=== PATIENT | female | born 1970 | race African-American/Black ===

== ENCOUNTER 2017-02-20 14:08 | Emergency (ER) | payer MEDICAID, OTHER ==
[2017-02-20] MEDS ORDERED: Ketorolac 60 MG/2 ML SDV IM ONE (14:44)
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
[2017-02-20] MEDS ORDERED: Sodium Chloride 0.9% 1,000 ML IV ONE (15:27)
[2017-02-20] MEDS ORDERED: Ondansetron 4 MG/2 ML SDV IVPUSH ONE (15:27)
[2017-02-20] MEDS ORDERED: Morphine 2 MG/ML Syringe IVPUSH ONE (15:27)
[2017-02-20 16:28] LABS: CHLORIDE,CL 106 mmol/L (98-110); SODIUM,NA 139 mmol/L (136-146)
[2017-02-20 17:44] VITALS: BP 169/87
--- NOTE | 2017-02-22 13:35 | CR ---
EXAM DATE: 02/20/17 PATIENT'S AGE: 46 Patient: NATHALIA UHMMEL Facility: [place], [place] Site . Site : 1970 Study: XRay Chest [id number] 3:21:11 PM Ordering Physician: Doctor Walden Final Report: HISTORY: Chest pain and shortness of breath. Findings: Two views of the chest are provided. There is mild patchy increased density seen in the right lower lung. The upper portion of the right lung and left lung are clear. No evidence for pneumothorax. Cardiac silhouette size appears enlarged. This could be due to cardiomegaly, pericardial effusion or both. Impression: Mild patchy density at the right lung base suspicious for pneumonia. Dictated by James Toro MD @ Feb 20 2017 3:25PM (Electronic Signature) Report Signed by Proxy. RACHEL
--- NOTE | 2017-02-22 13:36 | CR ---
EXAM DATE: 02/20/17 PATIENT'S AGE: 46 Patient: NATHALIA HUMMEL Facility: [place], [place] Site . Site : 1970 Study: XRay Spine Lumbar [id number] 3:21:31 PM Ordering Physician: Doctor Walden Final Report: HISTORY: Back pain. Findings: Three views of the lumbar spine are provided. There is a mild lumbar curve convex to the right. Alignment on the lateral view is unremarkable. There are no findings for fracture or subluxation. The sacroiliac joints are unremarkable. Dictated by James Toro MD @ Feb 20 2017 3:26PM (Electronic Signature) Report Signed by Proxy. RACHEL
== END 2017-02-20 17:41 | disposition home or self-care (01) ==
LOC: MW.ED 14:08
DX: J18.9 Pneumonia, unspecified organism (principal); Z79.4 Long term (current) use of insulin; Z79.84 Long term (current) use of oral hypoglycemic drugs; Z79.899 Other long term (current) drug therapy
CPT/HCPCS: 36415; 71020; 72100; 80053; 85025; 96361; 96374; 96375; 99284; J1885; J2270; J2405; J7040; 99283

== ENCOUNTER 2017-03-16 15:37 | Inpatient (IN) | payer OTHER ==
[2017-03-16] MEDS ORDERED: Sodium Chloride 0.9% 2.5 ML Syringe FLUSH PRN ×2 (16:09→20:16)
[2017-03-16] MEDS ORDERED: Sodium Chloride 0.9% 10 ML Syringe FLUSH PRN ×2 (16:09→20:16)
[2017-03-16] MEDS ORDERED: Albuterol/Ipratropium 3.0-0.5 MG/3 ML Neb Soln NEB ONE (16:10)
[2017-03-16] MEDS ORDERED: Dexamethasone 10 MG/ML SDV IVPUSH ONE (16:11)
--- NOTE | 2017-03-16 16:13 | EDM.PDOC ---
ED HPI GENERAL MEDICAL PROBLEM - General Chief Complaint: Respiratory Problem Stated Complaint: SHORTNESS OF BREATH/COUGHING Time Seen by Provider: 03/16/17 16:10 Source of Information: Reports: Patient History Limitations: Reports: No Limitations - History of Present Illness INITIAL COMMENTS - FREE TEXT/NARRATIVE: HISTORY AND PHYSICAL: 46-year-old black female presenting with shortness of breath and increased respiratory rate History of Present Illness: []Patient has been sick for the last month and gradually has worsened Known history diabetes mellitus type 1 she has history of pneumonia Review of Systems: As per history of present illness and below otherwise all systems reviewed and negative. Past medical history: As per history of present illness and as reviewed below otherwise noncontributory. Surgical history: As per history of present illness and as reviewed below otherwise noncontributory. Social history: No reported history of drug or alcohol abuse. Family history: As per history of present illness and as reviewed below otherwise noncontributory. Physical exam: HEENT: Atraumatic, normocehpalic, pupils reactive, negative for conjunctival pallor or scleral icterus, mucous membranes moist, throat clear, neck supple, nontender, trachea midline. Lungs: Clear to auscultation, breath sounds equal bilaterally, chest non tender. Heart: S1S2, regular, negative for clicks, rubs, or JVD. Abdomen: Soft, nondistended, nontender. Negative for masses or hepatossplenmegaly. Negative for costovertebral tenderness. Pelvis: Stable nontender. Genitourinary: Deferred. Rectal: Deferred Extremities: Atraumatic, negative for cords or calf pain. Neurovascular unremarkable. Neuro: Awake, alert, oriented. Cranial nerves II through XII unremarkable. Cerebellum unremarkable. Motor and sensory unremarkable throughout. Exam nonfocal. Diagnostics: [] Therapeutics: [] Impression: [] Plan: [] Definitive disposition and diagnosis as appropriate pending reevaluation and review of above. - Related Data Allergies Allergy/AdvReac Type Severity Reaction Status Date / Time No Known Allergies Allergy Verified 02/20/17 14:11 Home Meds: Home Meds Insulin Aspart [NovoLOG] 6 units SQ TID 05/23/15 [History] metFORMIN [Glucophage] 1,000 mg PO BIDMEALS 05/23/15 [History] Losartan/Hydrochlorothiazide [Losartan-HCTZ 100-25 MG] 1 each PO DAILY #30 tablet 02/03/16 [Rx] Cefdinir 300 mg PO BID #60 capsule 07/02/15 [Rx] Insulin Detemir [Levemir Flextouch] 27 units SQ BEDTIME #0 07/02/15 [Rx] amLODIPine [Norvasc] 5 mg PO DAILY #30 tablet 07/02/15 [Rx] Levofloxacin [Levaquin] 750 mg PO DAILY #10 tablet 02/20/17 [Rx] Past Medical History - Past Health History Medical/Surgical History: Denies Medical/Surgical History HEENT History: Reports: Impaired Vision Cardiovascular History: Reports: High Cholesterol Respiratory History: Reports: None Gastrointestinal History: Reports: None Genitourinary History: Reports: Other (See Below) Other Genitourinary History: UTI 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 Musculoskeletal History: Reports: None Neurological History: Reports: None Psychiatric History: Reports: None Endocrine/Metabolic History: Reports: Diabetes, Type I Hematologic History: Reports: None Immunologic History: Reports: None Oncologic (Cancer) History: Reports: None Dermatologic History: Reports: None - Past Surgical History Head Surgeries/Procedures: Reports: None Cardiovascular Surgical History: Reports: None GI Surgical History: Reports: Appendectomy Female Surgical History: Reports: None Endocrine Surgical History: Reports: None Musculoskeletal Surgical History: Reports: None Social & Family History - Family History Family Medical History: Noncontributory - Tobacco Use Smoking Status *Q: Never Smoker Second Hand Smoke Exposure: No - Caffeine Use Caffeine Use: Reports: Tea - Recreational Drug Use Recreational Drug Use: No Course - Vital Signs Last Recorded V/S: Last Vital Signs Temp 37.9 C 03/16/17 15:47 Pulse 120 H 03/16/17 15:47 Resp 18 03/16/17 15:47 BP 218/116 H 03/16/17 15:47 Pulse Ox 84 L 03/16/17 15:47 - Orders/Labs/Meds Orders: Active Orders 24 hr Category Date Time Status EKG Documentation Completion [RC] STAT Care 03/16/17 16:09 Ordered RT Aerosol Therapy [RC] ASDIRECTED Care 03/16/17 16:10 Ordered Chest 2V [CR] Stat Exams 03/16/17 16:10 Ordered CBC WITH AUTO DIFF [HEME] Stat Lab 03/16/17 16:09 Ordered COMPREHENSIVE METABOLIC PN,CMP [CHEM] Stat Lab 03/16/17 16:09 Ordered HCG QUALITATIVE,URINE [URCHEM] Stat Lab 03/16/17 16:09 Uncollected TROPONIN I [CHEM] Stat Lab 03/16/17 16:09 Ordered UA W/MICROSCOPIC [URIN] Stat Lab 03/16/17 16:10 Uncollected Albuterol/Ipratropium [DuoNeb 3.0-0.5 MG/3 ML] Med 03/16/17 16:10 Once 3 ml NEB ONETIME ONE Sodium Chloride 0.9% [Saline Flush] Med 03/16/17 16:09 Ordered 10 ml FLUSH ASDIRECTED PRN Sodium Chloride 0.9% [Saline Flush] Med 03/16/17 16:09 Ordered 2.5 ml FLUSH ASDIRECTED PRN Saline Lock Insert [OM.PC] Stat Oth 03/16/17 16:09 Ordered Medication Orders Sodium Chloride (Saline Flush) 10 ml FLUSH ASDIRECTED PRN PRN Reason: Keep Vein Open Sodium Chloride (Saline Flush) 2.5 ml FLUSH ASDIRECTED PRN PRN Reason: Keep Vein Open Meds: Medications Generic Name Dose Route Start Last Admin Trade Name Freq PRN Reason Stop Dose Admin Sodium Chloride 10 ml 03/16/17 16:09 Saline Flush FLUSH ASDIRECTED PRN Keep Vein Open Sodium Chloride 2.5 ml 03/16/17 16:09 Saline Flush FLUSH ASDIRECTED PRN Keep Vein Open Departure - Discharge Information Referrals: PCP,None [Primary Care Provider] - - My Orders Last 24 Hours: My Active Orders 03/16/17 16:09 EKG Documentation Completion [RC] STAT CBC WITH AUTO DIFF [HEME] Stat COMPREHENSIVE METABOLIC PN,CMP [CHEM] Stat HCG QUALITATIVE,URINE [URCHEM] Stat TROPONIN I [CHEM] Stat Sodium Chloride 0.9% [Saline Flush] 10 ml FLUSH ASDIRECTED PRN Sodium Chloride 0.9% [Saline Flush] 2.5 ml FLUSH ASDIRECTED PRN Saline Lock Insert [OM.PC] Stat 03/16/17 16:10 RT Aerosol Therapy [RC] ASDIRECTED Chest 2V [CR] Stat UA W/MICROSCOPIC [URIN] Stat Albuterol/Ipratropium [DuoNeb 3.0-0.5 MG/3 ML] 3 ml NEB ONETIME ONE - Assessment/Plan Last 24 Hours: My Active Orders 03/16/17 16:09 EKG Documentation Completion [RC] STAT CBC WITH AUTO DIFF [HEME] Stat COMPREHENSIVE METABOLIC PN,CMP [CHEM] Stat HCG QUALITATIVE,URINE [URCHEM] Stat TROPONIN I [CHEM] Stat Sodium Chloride 0.9% [Saline Flush] 10 ml FLUSH ASDIRECTED PRN Sodium Chloride 0.9% [Saline Flush] 2.5 ml FLUSH ASDIRECTED PRN Saline Lock Insert [OM.PC] Stat 03/16/17 16:10 RT Aerosol Therapy [RC] ASDIRECTED Chest 2V [CR] Stat UA W/MICROSCOPIC [URIN] Stat Albuterol/Ipratropium [DuoNeb 3.0-0.5 MG/3 ML] 3 ml NEB ONETIME ONE
[2017-03-16 17:00] LABS: CHLORIDE,CL 99 mmol/L (98-110); SODIUM,NA 136 mmol/L (136-146)
[2017-03-16] MEDS ORDERED: Insulin Regular, Human 100 Units/ML 10 ML Vial IVPUSH ONE (17:08)
[2017-03-16] MEDS ORDERED: Acetaminophen 325 MG Tab PO ONE (18:53)
[2017-03-16] MEDS ORDERED: Levofloxacin/Dextrose 5%-Water 750 MG in Premix Bag 1 BAG IV ONE (19:00)
[2017-03-16] MEDS ORDERED: Sodium Chloride 0.9% 1,000 ML IV ONE (19:00)
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
[2017-03-16 21:21] LABS: CHLORIDE,CL 102 mmol/L (98-110); SODIUM,NA 136 mmol/L (136-146)
[2017-03-16] MEDS: Insulin Aspart 100 Units/ML 3 ML Pen SUBCUT SCH (23:10)
[2017-03-17] MEDS ORDERED: Lisinopril 10 MG Tab PO SCH (09:00)
[2017-03-17] MEDS: Insulin Aspart 100 Units/ML 3 ML Pen SUBCUT SCH ×5 (09:09→22:44)
[2017-03-17] MEDS: Enoxaparin 40 MG/0.4 ML Syringe SUBCUT SCH (09:17)
[2017-03-17] MEDS: Hydrochlorothiazide/Losartan 12.5-50 mg Tab PO SCH (09:17)
[2017-03-17] MEDS: amLODIPine 5 MG Tab PO SCH (09:18)
--- NOTE | 2017-03-17 10:10 | CR ---
EXAM DATE: 03/16/17 PATIENT'S AGE: 46 Patient: NATHALIA HUMMEL Facility: [place], [place] Site . Site : 1970 Study: XRay Chest [id number]/21/2017 5:36:44 PM Ordering Physician: Doctor Walden Final Report: INDICATION: Shortness of breath TECHNIQUE: Chest radiograph 2 views COMPARISON: 02/20/2017 FINDINGS: Mediastinum: The mediastinum is normal in appearance. Mild stable cardiomegaly is noted. Lungs: [id number] airspace opacities are present in the mid and lower lung zones bilaterally with minimal Lai A and Lia B-lines seen. No sign of pleural effusion seen. No pneumothorax is identified. Bones: Unremarkable for age. IMPRESSIONS: 1. Klhj-[id number] airspace opacities are present in the mid and lower lung zones bilaterally with minimal Lia A and Lia B-lines seen. Findings are suspicious for interstitial edema. Superimposed pneumonia cannot be excluded. 2. Mild stable cardiomegaly is noted. Dictated by Jaime Nolasco MD @ 03/16/2017 6:20:20 PM Dictated by: Jaime Nolasco MD @ 03/16/2017 18:20:37 (Electronic Signature) Report Signed by Proxy. RACHEL
--- NOTE | 2017-03-17 13:19 | EDM.PDOC ---
ED HPI GENERAL MEDICAL PROBLEM - General Chief Complaint: Respiratory Problem Stated Complaint: SHORTNESS OF BREATH/COUGHING Time Seen by Provider: 03/16/17 16:10 Source of Information: Reports: Patient, Family History Limitations: Reports: Other (sleeping , difficult to arouse ) - History of Present Illness INITIAL COMMENTS - FREE TEXT/NARRATIVE: HISTORY AND PHYSICAL: []Patient presents with shortness of breath to 46-year-old black female has any increased respiratory rate History of Present Illness: [Patient states that she has been sick for the last month and gradually has worsened Patient has no known history of diabetes mellitus type 1 Patient has known history of pneumonia she has been hospitalized for this in the past Patient does not recall her medications because there are "too many"] Review of Systems: As per history of present illness and below otherwise all systems reviewed and negative. Past medical history: As per history of present illness and as reviewed below otherwise noncontributory. Surgical history: As per history of present illness and as reviewed below otherwise noncontributory. Social history: No reported history of drug or alcohol abuse. Family history: As per history of present illness and as reviewed below otherwise noncontributory. Physical exam: Somewhat lethargic female with rapid respirations. Secondary language is [place]. She is from descent. Skin is warm and dry HEENT: Atraumatic, normocehpalic, pupils reactive, negative for conjunctival pallor or scleral icterus, mucous membranes moist, throat clear, neck supple, nontender, trachea midline. Lungs: Diminished on auscultation, breath sounds equal bilaterally, chest non tender. Heart: S1S2, regular, negative for clicks, rubs, or JVD. Abdomen: Soft, nondistended, nontender. Negative for masses or hepatossplenmegaly. Negative for costovertebral tenderness. Pelvis: Stable nontender. Genitourinary: Deferred. Rectal: Deferred Extremities: Atraumatic, negative for cords or calf pain. Neurovascular unremarkable. Neuro: Awake, alert, oriented. Cranial nerves II through XII unremarkable. Cerebellum unremarkable. Motor and sensory unremarkable throughout. Exam nonfocal. Have discussed this case with patient and with the friends that is now present in the room. Have discussed her pneumonia and my concerns Have discussed this case with Dr. Blount who has kindly accepted this patient for admission Diagnostics: [CBC CMP amylase lipase ABGs troponin EKG chest x-ray hCG UA ] Therapeutics: [Duo nebs IV fluid Levaquin IV] Impression: [Right middle lobe pneumonia Pulmonary edema] Plan: []Admit patient to medical surgical floor Definitive disposition and diagnosis as appropriate pending reevaluation and review of above. Onset: Gradual Location: Reports: Chest - Related Data Allergies Allergy/AdvReac Type Severity Reaction Status Date / Time No Known Allergies Allergy Verified 02/20/17 14:11 Home Meds: Home Meds Insulin Aspart [NovoLOG] 6 units SQ TID 05/23/15 [History] metFORMIN [Glucophage] 1,000 mg PO BIDMEALS 05/23/15 [History] Losartan/Hydrochlorothiazide [Losartan-HCTZ 100-25 MG] 1 each PO DAILY #30 tablet 05/29/15 [Rx] Cefdinir 300 mg PO BID #60 capsule 07/02/15 [Rx] Insulin Detemir [Levemir Flextouch] 27 units SQ BEDTIME #0 07/02/15 [Rx] amLODIPine [Norvasc] 5 mg PO DAILY #30 tablet 07/02/15 [Rx] Levofloxacin [Levaquin] 750 mg PO DAILY #10 tablet 02/20/17 [Rx] Furosemide 40 mg PO DAILY 03/16/17 [History] Past Medical History - Past Health History Medical/Surgical History: Denies Medical/Surgical History HEENT History: Reports: Impaired Vision Cardiovascular History: Reports: High Cholesterol Respiratory History: Reports: None Gastrointestinal History: Reports: None Genitourinary History: Reports: Other (See Below) Other Genitourinary History: UTI GORE CUTTER History: Reports: None Musculoskeletal History: Reports: None Neurological History: Reports: None Psychiatric History: Reports: None Endocrine/Metabolic History: Reports: Diabetes, Type I Hematologic History: Reports: None Immunologic History: Reports: None Oncologic (Cancer) History: Reports: None Dermatologic History: Reports: None - Infectious Disease History Infectious Disease History: Reports: None - Past Surgical History Head Surgeries/Procedures: Reports: None Cardiovascular Surgical History: Reports: None GI Surgical History: Reports: Appendectomy Female Surgical History: Reports: None Endocrine Surgical History: Reports: None Musculoskeletal Surgical History: Reports: None Social & Family History - Family History Family Medical History: Noncontributory - Tobacco Use Smoking Status *Q: Never Smoker Second Hand Smoke Exposure: No - Caffeine Use Caffeine Use: Reports: Tea - Recreational Drug Use Recreational Drug Use: No ED ROS GENERAL - Review of Systems Review Of Systems: ROS reveals no pertinent complaints other than HPI. ED EXAM, GENERAL - Physical Exam Exam: See Below (See dictation) Course - Vital Signs Last Recorded V/S: Last Vital Signs Temp 36.3 C 03/17/17 08:00 Pulse 95 03/17/17 08:00 Resp 16 03/17/17 08:00 BP 147/82 H 03/17/17 09:18 Pulse Ox 98 03/17/17 08:00 - Orders/Labs/Meds Orders: Active Orders 24 hr Category Date Time Status EKG Documentation Completion [RC] STAT Care 03/16/17 16:09 Active RT Aerosol Therapy [RC] ASDIRECTED Care 03/16/17 16:10 Active CULTURE BLOOD [BC] Stat Lab 03/16/17 18:27 Received CULTURE BLOOD [BC] Stat Lab 03/16/17 18:34 Received Sodium Chloride 0.9% [Saline Flush] Med 03/16/17 16:09 Active 10 ml FLUSH ASDIRECTED PRN Sodium Chloride 0.9% [Saline Flush] Med 03/16/17 16:09 Active 2.5 ml FLUSH ASDIRECTED PRN Blood Culture x2 Reflex Set [OM.PC] Stat Oth 03/16/17 18:04 Ordered Saline Lock Insert [OM.PC] Stat Oth 03/16/17 16:09 Ordered Medication Orders Amlodipine Besylate (Norvasc) 5 mg PO DAILY [facility] Last Admin: 03/17/17 09:18 Dose: 5 mg Enoxaparin Sodium (Lovenox) 40 mg SUBCUT DAILY [facility] Last Admin: 03/17/17 09:17 Dose: 40 mg HCTZ/Losartan Potassium (Hyzaar 50-12.5 Mg) 2 tab PO DAILY [facility] Last Admin: 03/17/17 09:17 Dose: 2 tab Levofloxacin/Dextrose 750 mg/ (Premix) 150 mls @ 100 mls/hr IV ONETIME ONE Stop: 03/17/17 21:29 Insulin Aspart (Novolog) 0 unit SUBCUT QIDACANDBED MAY PRN Reason: Protocol Last Admin: 03/17/17 09:09 Dose: 6 unit Admin: 03/16/17 23:10 Dose: 6 unit Insulin Aspart (Novolog) 6 unit SUBCUT TID MAY Insulin Detemir (Levemir) 27 unit SUBCUT BEDTIME [facility] Metformin HCl (Glucophage) 1,000 mg PO BIDMEALS MAY Sodium Chloride (Saline Flush) 10 ml FLUSH ASDIRECTED PRN PRN Reason: Keep Vein Open Sodium Chloride (Saline Flush) 2.5 ml FLUSH ASDIRECTED PRN PRN Reason: Keep Vein Open Sodium Chloride (Saline Flush) 10 ml FLUSH ASDIRECTED PRN PRN Reason: Keep Vein Open Sodium Chloride (Saline Flush) 2.5 ml FLUSH ASDIRECTED PRN PRN Reason: Keep Vein Open Labs: Laboratory Tests 03/16/17 03/16/17 03/16/17 Range/Units 16:15 16:15 18:42 WBC 5.90 (4.0-11.0) K/uL RBC 4.00 L (4.30-5.90) M/uL Hgb 11.5 L (12.0-16.0) g/dL Hct 35.5 L (36.0-46.0) % MCV 88.8 (80.0-98.0) fL MCH 28.8 (27.0-32.0) pg MCHC 32.4 (31.0-37.0) g/dL RDW Std Deviation 43.1 (28.0-62.0) fl RDW Coeff of Matt 13 (11.0-15.0) % Plt Count 238 (150-400) K/uL MPV 10.30 (7.40-12.00) fL Neut % (Auto) 82.1 H (48.0-80.0) % Lymph % (Auto) 8.1 L (16.0-40.0) % [place] % (Auto) 9.3 (0.0-15.0) % Eos % (Auto) 0.3 (0.0-7.0) % Baso % (Auto) 0.2 (0.0-1.5) % Neut # (Auto) 4.8 (1.4-5.7) K/uL Lymph # (Auto) 0.5 L (0.6-2.4) K/uL [place] # (Auto) 0.6 (0.0-0.8) K/uL Eos # (Auto) 0.0 (0.0-0.7) K/uL Baso # (Auto) 0.0 (0.0-0.1) K/uL Nucleated RBC % 0.0 /100WBC Nucleated RBCs # 0 K/uL Sodium 136 (136-146) mmol/L Potassium 4.1 (3.5-5.1) mmol/L Chloride 99 (98-110) mmol/L Carbon Dioxide 24 (21-31) mmol/L BUN 16 (6.0-23.0) mg/dL Creatinine 0.9 (0.6-1.5) mg/dL Est Cr Clr Drug Dosing 71.03 mL/min Estimated GFR (MDRD) > 60.0 ml/min Glucose 356 H (60-110) mg/dL POC Glucose 206 H (60-110) mg/dL Calcium 9.1 (8.8-10.8) mg/dL Total Bilirubin 0.2 (0.1-1.5) mg/dL AST 33 (5-40) IU/L ALT 29 (8-54) IU/L Alkaline Phosphatase 108 (40-150) Troponin I < 0.10 (0.0-0.29) NG/ML Total Protein 6.7 (6.0-8.0) g/dL Albumin 3.3 L (3.5-5.0) g/dL Globulin 3.4 (2.0-3.5) g/dL Albumin/Globulin Ratio 1.0 L (1.3-2.8) Meds: Medications Generic Name Dose Route Start Last Admin Trade Name Freq PRN Reason Stop Dose Admin Amlodipine Besylate 5 mg 03/17/17 09:00 03/17/17 09:18 Norvasc PO 5 mg DAILY [facility] Administration Enoxaparin Sodium 40 mg 03/17/17 09:00 03/17/17 09:17 Lovenox SUBCUT 40 mg DAILY MAY Administration HCTZ/Losartan Potassium 2 tab 03/17/17 09:00 03/17/17 09:17 Hyzaar 50-12.5 Mg PO 2 tab DAILY MAY Administration Levofloxacin/Dextrose 750 mg/ 150 mls @ 100 mls/hr 03/17/17 20:00 Premix IV 03/17/17 21:29 ONETIME ONE Insulin Aspart 0 unit 03/16/17 21:00 03/17/17 09:09 Novolog SUBCUT 6 unit QIDACANDBED [facility] Administration Protocol Insulin Aspart 6 unit 03/17/17 14:00 Novolog SUBCUT TID [facility] Insulin Detemir 27 unit 03/17/17 21:00 Levemir SUBCUT BEDTIME [facility] Metformin HCl 1,000 mg 03/17/17 17:00 Glucophage PO BIDMEALS [facility] Sodium Chloride 10 ml 03/16/17 16:09 Saline Flush FLUSH ASDIRECTED PRN Keep Vein Open Sodium Chloride 2.5 ml 03/16/17 16:09 Saline Flush FLUSH ASDIRECTED PRN Keep Vein Open Sodium Chloride 10 ml 03/16/17 20:16 Saline Flush FLUSH ASDIRECTED PRN Keep Vein Open Sodium Chloride 2.5 ml 03/16/17 20:16 Saline Flush FLUSH ASDIRECTED PRN Keep Vein Open Discontinued Medications Generic Name Dose Route Start Last Admin Trade Name Freq PRN Reason Stop Dose Admin Acetaminophen 650 mg 03/16/17 18:53 03/16/17 19:16 Tylenol PO 03/16/17 18:54 650 mg NOW ONE Administration Albuterol/Ipratropium 3 ml 03/16/17 16:10 03/16/17 16:31 Duoneb 3.0-0.5 Mg/3 Ml NEB 03/16/17 16:11 3 ml ONETIME ONE Administration Dexamethasone 10 mg 03/16/17 16:11 03/16/17 16:31 Dexamethasone IVPUSH 03/16/17 16:12 10 mg ONETIME ONE Administration Levofloxacin/Dextrose 750 mg/ 150 mls @ 100 mls/hr 03/16/17 19:00 03/16/17 19 :17 Premix IV 03/16/17 20:29 100 mls/hr ONETIME ONE Administration Sodium Chloride 1,000 mls @ 999 mls/hr 03/16/17 19:00 03/16/17 19:16 Normal Saline IV 03/16/17 20:00 999 mls/hr STAT ONE Administration Insulin Human Regular 10 unit 03/16/17 17:08 03/16/17 17:59 Novolin R IVPUSH 03/16/17 17:09 10 units ONETIME ONE Administration Protocol Lisinopril 10 mg 03/17/17 09:00 Prinivil PO DAILY [facility] Departure - Departure Time of Disposition: 20:30 Disposition: Admitted As Inpatient 67 Condition: Good Clinical Impression: Pneumonia Qualifiers: Pneumonia type: due to unspecified organism Laterality: right Lung location: middle lobe of lung Qualified Code(s): J18.1 - Lobar pneumonia, unspecified organism - Discharge Information - My Orders Last 24 Hours: My Active Orders 03/16/17 16:09 EKG Documentation Completion [RC] STAT Sodium Chloride 0.9% [Saline Flush] 10 ml FLUSH ASDIRECTED PRN Sodium Chloride 0.9% [Saline Flush] 2.5 ml FLUSH ASDIRECTED PRN Saline Lock Insert [OM.PC] Stat 03/16/17 16:10 RT Aerosol Therapy [RC] ASDIRECTED 03/16/17 18:04 Blood Culture x2 Reflex Set [OM.PC] Stat 03/16/17 18:27 CULTURE BLOOD [BC] Stat 03/16/17 18:34 CULTURE BLOOD [BC] Stat - Assessment/Plan Last 24 Hours: My Active Orders 03/16/17 16:09 EKG Documentation Completion [RC] STAT Sodium Chloride 0.9% [Saline Flush] 10 ml FLUSH ASDIRECTED PRN Sodium Chloride 0.9% [Saline Flush] 2.5 ml FLUSH ASDIRECTED PRN Saline Lock Insert [OM.PC] Stat 03/16/17 16:10 RT Aerosol Therapy [RC] ASDIRECTED 03/16/17 18:04 Blood Culture x2 Reflex Set [OM.PC] Stat 03/16/17 18:27 CULTURE BLOOD [BC] Stat 03/16/17 18:34 CULTURE BLOOD [BC] Stat
[2017-03-17] MEDS ORDERED: Insulin Aspart 100 Units/ML 3 ML Pen SUBCUT SCH ×2 (14:00→16:10)
[2017-03-17] MEDS: Furosemide 40 MG Tab PO SCH (15:30)
[2017-03-17] MEDS: metFORMIN 500 MG Tab PO SCH (17:41)
[2017-03-17] MEDS ORDERED: Levofloxacin/Dextrose 5%-Water 750 MG in Premix Bag 1 BAG IV ONE (20:00)
[2017-03-17] MEDS ORDERED: Insulin Detemir 100 Units/ML 3 ML Pen SUBCUT SCH (21:00)
[2017-03-18] MEDS: Acetaminophen 325 MG Tab PO PRN (02:54)
[2017-03-18 06:04] LABS: CHLORIDE,CL 99 mmol/L (98-110); SODIUM,NA 132 mmol/L (136-146)
[2017-03-18] MEDS: metFORMIN 500 MG Tab PO SCH (08:25)
[2017-03-18] MEDS: Insulin Aspart 100 Units/ML 3 ML Pen SUBCUT SCH ×7 (08:25→21:31)
[2017-03-18] MEDS: Enoxaparin 40 MG/0.4 ML Syringe SUBCUT SCH (08:26)
[2017-03-18] MEDS: Hydrochlorothiazide/Losartan 12.5-50 mg Tab PO SCH (08:26)
[2017-03-18] MEDS: amLODIPine 5 MG Tab PO SCH (08:27)
[2017-03-18] MEDS: Furosemide 40 MG Tab PO SCH (08:27)
[2017-03-18] MEDS ORDERED: Insulin Detemir 100 Units/ML 3 ML Pen SUBCUT SCH ×2 (09:21→21:15)
[2017-03-18] MEDS: Lisinopril 10 MG Tab PO SCH (10:17)
[2017-03-18] MEDS: guaiFENesin 100 MG/5 ML Soln 10 ML UD Cup PO PRN ×2 (14:21→21:14)
--- NOTE | 2017-03-18 18:25 | PCM.PN ---
- General Info Date of Service: 03/18/17 Admission Dx/Problem (Free Text): Pneumonia , chf Subjective Update: Feeling better today , decreased appetite , Bs uncontrolled - Review of Systems General: Reports: Weakness HEENT: Reports: No Symptoms Pulmonary: Reports: Shortness of Breath, Cough, Sputum Cardiovascular: Reports: Dyspnea on Exertion Gastrointestinal: Reports: No Symptoms Genitourinary: Reports: No Symptoms Musculoskeletal: Reports: No Symptoms Skin: Reports: Dryness Neurological: Reports: No Symptoms - Patient Data Vitals - Most Recent: Last Vital Signs Temp 99.5 F 03/18/17 12:00 Pulse 96 03/18/17 12:00 Resp 18 03/18/17 12:00 BP 138/78 03/18/17 12:00 Pulse Ox 92 L 03/18/17 12:00 Weight - Most Recent: 160 lb I&O - Last 24 Hours: Intake & Output 03/18/17 03/18/17 03/18/17 06:59 14:59 22:59 Intake Total 740 625 Output Total 1300 1000 Balance -560 -375 Lab Results Last 24 Hours: Laboratory Results - last 24 hr 03/17/17 03/17/17 03/18/17 Range/Units 16:58 22:19 05:10 WBC (4.0-11.0) K/uL RBC (4.30-5.90) M/uL Hgb (12.0-16.0) g/dL Hct (36.0-46.0) % MCV (80.0-98.0) fL MCH (27.0-32.0) pg MCHC (31.0-37.0) g/dL RDW Std Deviation (28.0-62.0) fl RDW Coeff of Matt (11.0-15.0) % Plt Count (150-400) K/uL MPV (7.40-12.00) fL Neut % (Auto) (48.0-80.0) % Lymph % (Auto) (16.0-40.0) % [place] % (Auto) (0.0-15.0) % Eos % (Auto) (0.0-7.0) % Baso % (Auto) (0.0-1.5) % Neut # (Auto) (1.4-5.7) K/uL Lymph # (Auto) (0.6-2.4) K/uL [place] # (Auto) (0.0-0.8) K/uL Eos # (Auto) (0.0-0.7) K/uL Baso # (Auto) (0.0-0.1) K/uL Nucleated RBC % /100WBC Nucleated RBCs # K/uL Sodium (136-146) mmol/L Potassium (3.5-5.1) mmol/L Chloride (98-110) mmol/L Carbon Dioxide (21-31) mmol/L BUN (6.0-23.0) mg/dL Creatinine (0.6-1.5) mg/dL Est Cr Clr Drug Dosing mL/min Estimated GFR (MDRD) ml/min Glucose (60-110) mg/dL POC Glucose 185 H 231 H (60-110) mg/dL Calcium (8.8-10.8) mg/dL Triglycerides 160 (10-190) mg/dL Cholesterol 242 H (131-240) mg/dL LDL Cholesterol, Calc 164 (60-180) mg/dL VLDL Cholesterol 32 (5-55) mg/dL HDL Cholesterol 46 (40-80) mg/dL Cholesterol/HDL Ratio 5.3 (3.3-6.0) 03/18/17 03/18/17 03/18/17 Range/Units 05:10 05:10 06:09 WBC 3.22 L (4.0-11.0) K/uL RBC 3.72 L (4.30-5.90) M/uL Hgb 10.6 L (12.0-16.0) g/dL Hct 33.3 L (36.0-46.0) % MCV 89.5 (80.0-98.0) fL MCH 28.5 (27.0-32.0) pg MCHC 31.8 (31.0-37.0) g/dL RDW Std Deviation 44.1 (28.0-62.0) fl RDW Coeff of Matt 13 (11.0-15.0) % Plt Count 232 (150-400) K/uL MPV 10.10 (7.40-12.00) fL Neut % (Auto) 60.2 (48.0-80.0) % Lymph % (Auto) 28.3 (16.0-40.0) % [place] % (Auto) 11.2 (0.0-15.0) % Eos % (Auto) 0.0 (0.0-7.0) % Baso % (Auto) 0.3 (0.0-1.5) % Neut # (Auto) 1.9 (1.4-5.7) K/uL Lymph # (Auto) 0.9 (0.6-2.4) K/uL [place] # (Auto) 0.4 (0.0-0.8) K/uL Eos # (Auto) 0.0 (0.0-0.7) K/uL Baso # (Auto) 0.0 (0.0-0.1) K/uL Nucleated RBC % 0.0 /100WBC Nucleated RBCs # 0 K/uL Sodium 132 L (136-146) mmol/L Potassium 4.1 (3.5-5.1) mmol/L Chloride 99 (98-110) mmol/L Carbon Dioxide 24 (21-31) mmol/L BUN 17 (6.0-23.0) mg/dL Creatinine 1.0 (0.6-1.5) mg/dL Est Cr Clr Drug Dosing 63.82 mL/min Estimated GFR (MDRD) > 60.0 ml/min Glucose 280 H (60-110) mg/dL POC Glucose 217 H (60-110) mg/dL Calcium 8.3 L (8.8-10.8) mg/dL Triglycerides (10-190) mg/dL Cholesterol (131-240) mg/dL LDL Cholesterol, Calc (60-180) mg/dL VLDL Cholesterol (5-55) mg/dL HDL Cholesterol (40-80) mg/dL Cholesterol/HDL Ratio (3.3-6.0) 03/18/17 03/18/17 03/18/17 Range/Units 11:18 14:15 14:34 WBC (4.0-11.0) K/uL RBC (4.30-5.90) M/uL Hgb (12.0-16.0) g/dL Hct (36.0-46.0) % MCV (80.0-98.0) fL MCH (27.0-32.0) pg MCHC (31.0-37.0) g/dL RDW Std Deviation (28.0-62.0) fl RDW Coeff of Matt (11.0-15.0) % Plt Count (150-400) K/uL MPV (7.40-12.00) fL Neut % (Auto) (48.0-80.0) % Lymph % (Auto) (16.0-40.0) % [place] % (Auto) (0.0-15.0) % Eos % (Auto) (0.0-7.0) % Baso % (Auto) (0.0-1.5) % Neut # (Auto) (1.4-5.7) K/uL Lymph # (Auto) (0.6-2.4) K/uL [place] # (Auto) (0.0-0.8) K/uL Eos # (Auto) (0.0-0.7) K/uL Baso # (Auto) (0.0-0.1) K/uL Nucleated RBC % /100WBC Nucleated RBCs # K/uL Sodium (136-146) mmol/L Potassium (3.5-5.1) mmol/L Chloride (98-110) mmol/L Carbon Dioxide (21-31) mmol/L BUN (6.0-23.0) mg/dL Creatinine (0.6-1.5) mg/dL Est Cr Clr Drug Dosing mL/min Estimated GFR (MDRD) ml/min Glucose (60-110) mg/dL POC Glucose 195 H 33 L 87 (60-110) mg/dL Calcium (8.8-10.8) mg/dL Triglycerides (10-190) mg/dL Cholesterol (131-240) mg/dL LDL Cholesterol, Calc (60-180) mg/dL VLDL Cholesterol (5-55) mg/dL HDL Cholesterol (40-80) mg/dL Cholesterol/HDL Ratio (3.3-6.0) 03/18/17 Range/Units 17:05 WBC (4.0-11.0) K/uL RBC (4.30-5.90) M/uL Hgb (12.0-16.0) g/dL Hct (36.0-46.0) % MCV (80.0-98.0) fL MCH (27.0-32.0) pg MCHC (31.0-37.0) g/dL RDW Std Deviation (28.0-62.0) fl RDW Coeff of Matt (11.0-15.0) % Plt Count (150-400) K/uL MPV (7.40-12.00) fL Neut % (Auto) (48.0-80.0) % Lymph % (Auto) (16.0-40.0) % [place] % (Auto) (0.0-15.0) % Eos % (Auto) (0.0-7.0) % Baso % (Auto) (0.0-1.5) % Neut # (Auto) (1.4-5.7) K/uL Lymph # (Auto) (0.6-2.4) K/uL [place] # (Auto) (0.0-0.8) K/uL Eos # (Auto) (0.0-0.7) K/uL Baso # (Auto) (0.0-0.1) K/uL Nucleated RBC % /100WBC Nucleated RBCs # K/uL Sodium (136-146) mmol/L Potassium (3.5-5.1) mmol/L Chloride (98-110) mmol/L Carbon Dioxide (21-31) mmol/L BUN (6.0-23.0) mg/dL Creatinine (0.6-1.5) mg/dL Est Cr Clr Drug Dosing mL/min Estimated GFR (MDRD) ml/min Glucose (60-110) mg/dL POC Glucose 286 H (60-110) mg/dL Calcium (8.8-10.8) mg/dL Triglycerides (10-190) mg/dL Cholesterol (131-240) mg/dL LDL Cholesterol, Calc (60-180) mg/dL VLDL Cholesterol (5-55) mg/dL HDL Cholesterol (40-80) mg/dL Cholesterol/HDL Ratio (3.3-6.0) Med Orders - Current: Current Medications Acetaminophen (Tylenol) 650 mg PO Q6H PRN PRN Reason: Headache/Pain Last Admin: 03/18/17 02:54 Dose: 650 mg Amlodipine Besylate (Norvasc) 5 mg PO DAILY [facility] Last Admin: 03/18/17 08:27 Dose: 5 mg Atorvastatin Calcium (Lipitor) 40 mg PO BEDTIME [facility] Enoxaparin Sodium (Lovenox) 40 mg SUBCUT DAILY [facility] Last Admin: 03/18/17 08:26 Dose: 40 mg Furosemide (Lasix) 40 mg PO DAILY [facility] Last Admin: 03/18/17 08:27 Dose: 40 mg Guaifenesin (Robitussin) 200 mg PO Q6H PRN PRN Reason: Cough Last Admin: 03/18/17 14:21 Dose: 200 mg HCTZ/Losartan Potassium (Hyzaar 50-12.5 Mg) 2 tab PO DAILY [facility] Last Admin: 03/18/17 08:26 Dose: 2 tab Levofloxacin/Dextrose 750 mg/ (Premix) 150 mls @ 100 mls/hr IV Q24H [facility] Insulin Aspart (Novolog) 0 unit SUBCUT QIDACANDBED [facility] PRN Reason: Protocol Last Admin: 03/18/17 12:20 Dose: 2 unit Insulin Aspart (Novolog) 6 unit SUBCUT TIDMEALS [facility] Last Admin: 03/18/17 17:37 Dose: 6 units Insulin Detemir (Levemir) 40 unit SUBCUT BEDTIME [facility] Lisinopril (Prinivil) 10 mg PO DAILY [facility] Last Admin: 03/18/17 10:17 Dose: 10 mg Metoprolol Succinate (Toprol Xl) 25 mg PO BEDTIME [facility] Sodium Chloride (Saline Flush) 10 ml FLUSH ASDIRECTED PRN PRN Reason: Keep Vein Open Sodium Chloride (Saline Flush) 2.5 ml FLUSH ASDIRECTED PRN PRN Reason: Keep Vein Open Sodium Chloride (Saline Flush) 10 ml FLUSH ASDIRECTED PRN PRN Reason: Keep Vein Open Sodium Chloride (Saline Flush) 2.5 ml FLUSH ASDIRECTED PRN PRN Reason: Keep Vein Open Discontinued Medications Acetaminophen (Tylenol) 650 mg PO NOW ONE Stop: 03/16/17 18:54 Last Admin: 03/16/17 19:16 Dose: 650 mg Albuterol/Ipratropium (Duoneb 3.0-0.5 Mg/3 Ml) 3 ml NEB ONETIME ONE Stop: 03/16/17 16:11 Last Admin: 03/16/17 16:31 Dose: 3 ml Dexamethasone (Dexamethasone) 10 mg IVPUSH ONETIME ONE Stop: 03/16/17 16:12 Last Admin: 03/16/17 16:31 Dose: 10 mg Levofloxacin/Dextrose 750 mg/ (Premix) 150 mls @ 100 mls/hr IV ONETIME ONE Stop: 03/16/17 20:29 Last Admin: 03/16/17 19:17 Dose: 100 mls/hr Sodium Chloride (Normal Saline) 1,000 mls @ 999 mls/hr IV STAT ONE Stop: 03/16/17 20:00 Last Admin: 03/16/17 19:16 Dose: 999 mls/hr Levofloxacin/Dextrose 750 mg/ (Premix) 150 mls @ 100 mls/hr IV ONETIME ONE Stop: 03/17/17 21:29 Last Admin: 03/17/17 20:14 Dose: 100 mls/hr Insulin Aspart (Novolog) 6 unit SUBCUT TID [facility] Last Admin: 03/17/17 13:37 Dose: 6 units Insulin Aspart (Novolog) 10 unit SUBCUT TID [facility] Insulin Aspart (Novolog) 10 unit SUBCUT TIDMEALS [facility] Last Admin: 03/18/17 12:21 Dose: 10 units Insulin Detemir (Levemir) 27 unit SUBCUT BEDTIME [facility] Last Admin: 03/17/17 22:46 Dose: 27 unit Insulin Human Regular (Novolin R) 10 unit IVPUSH ONETIME ONE PRN Reason: Protocol Stop: 03/16/17 17:09 Last Admin: 03/16/17 17:59 Dose: 10 units Lisinopril (Prinivil) 10 mg PO DAILY [facility] Metformin HCl (Glucophage) 1,000 mg PO BIDMEALS [facility] Last Admin: 03/18/17 08:25 Dose: 1,000 mg - Exam Quality Assessment: Supplemental Oxygen General: Alert, Oriented HEENT: Pupils Equal, Pupils Reactive Neck: Supple, Trachea Midline Lungs: Clear to Auscultation Cardiovascular: Regular Rate, Regular Rhythm, No Murmurs GI/Abdominal Exam: Normal Bowel Sounds, Soft, Non-Tender, No Organomegaly Back Exam: Normal Inspection Extremities: Normal Inspection Skin: Warm, Dry Neurological: No New Focal Deficit Psy/Mental Status: Alert - Problem List & Annotations (1) Type 2 diabetes mellitus SNOMED Code(s): 12126037 Code(s): E11.9 - TYPE 2 DIABETES MELLITUS WITHOUT COMPLICATIONS Status: Acute Current Visit: No Qualifiers: Diabetes mellitus complication status: without complication (2) CAP (community acquired pneumonia) SNOMED Code(s): 217692848 Code(s): J18.9 - PNEUMONIA, UNSPECIFIED ORGANISM Status: Acute Current Visit: Yes (3) HTN (hypertension) SNOMED Code(s): 95826956 Code(s): I10 - ESSENTIAL (PRIMARY) HYPERTENSION Status: Chronic Current Visit: No Qualifiers: Hypertension type: essential hypertension Qualified Code(s): I10 - Essential (primary) hypertension - Problem List Review Problem List Initiated/Reviewed/Updated: Yes - My Orders Last 24 Hours: My Active Orders 03/18/17 02:27 Acetaminophen [Tylenol] 650 mg PO Q6H PRN 03/18/17 09:21 Insulin Detemir [Levemir] 40 unit SUBCUT BEDTIME 03/18/17 09:30 Lisinopril [Prinivil] 10 mg PO DAILY 03/18/17 11:59 guaiFENesin [Robitussin] 200 mg PO Q6H PRN 03/18/17 14:49 Insulin Aspart [NovoLOG] 6 unit SUBCUT TIDMEALS 03/18/17 20:00 Levofloxacin/Dextrose 5%-Water [Levaquin in D5W 750 MG/150 ML] 750 mg Premix Bag 1 bag IV Q24H 03/18/17 21:00 Metoprolol Succinate [Toprol XL] 25 mg PO BEDTIME atorvaSTATin [Lipitor] 40 mg PO BEDTIME - Assessment Assessment:: DMu/c HLP CAP CHF decreased appetite Hypoglicemia today ( patient received novolog with meal but did not eat.) plan: continue Levaquin IV , f/up ECHO , BC negative , continue lasix 40 mg po daily , robitussin DM for cough, BP control , atorvastatin 40 mg po daily heparin sq
[2017-03-18] MEDS ORDERED: Levofloxacin/Dextrose 5%-Water 750 MG in Premix Bag 1 BAG IV SCH (20:00)
[2017-03-18] MEDS ORDERED: atorvaSTATin 40 MG Tab PO SCH (21:00)
[2017-03-18] MEDS ORDERED: Metoprolol Succinate 25 MG Tab.ER PO SCH (21:00)
[2017-03-18] MEDS ORDERED: Mirtazapine 15 MG Tab PO SCH (21:45)
[2017-03-19] MEDS: Acetaminophen 325 MG Tab PO PRN (01:21)
[2017-03-19] MEDS: Insulin Aspart 100 Units/ML 3 ML Pen SUBCUT SCH ×4 (06:37→12:50)
[2017-03-19] MEDS: Hydrochlorothiazide/Losartan 12.5-50 mg Tab PO SCH (09:21)
[2017-03-19] MEDS: amLODIPine 5 MG Tab PO SCH (09:22)
[2017-03-19] MEDS: Enoxaparin 40 MG/0.4 ML Syringe SUBCUT SCH (09:22)
[2017-03-19] MEDS: Furosemide 40 MG Tab PO SCH (09:22)
[2017-03-19] MEDS: Lisinopril 10 MG Tab PO SCH (09:22)
[2017-03-19 11:56] VITALS: BP 129/70
--- NOTE | 2017-03-22 17:51 | ECHO ---
The echocardiogram report can be seen in this patient's EMR (electronic medical records) in the Reports section. The echocardiogram report has also been scanned into PACS and can be seen there. RACHEL
--- NOTE | 2017-03-23 21:58 | PCM.PN ---
- General Info Date of Service: 03/17/17 Admission Dx/Problem (Free Text): Pneumonia Subjective Update: Patient feeling better today , lethargic . Has cough productive of yellow green phlegm. Had fever 101.1 F in am. - Review of Systems General: Reports: Weakness HEENT: Reports: No Symptoms Pulmonary: Reports: Cough, Sputum Cardiovascular: Reports: Edema Gastrointestinal: Reports: No Symptoms Genitourinary: Reports: No Symptoms Musculoskeletal: Reports: No Symptoms Skin: Reports: No Symptoms Neurological: Reports: No Symptoms Psychiatric: Reports: No Symptoms - Patient Data Vitals - Most Recent: Last Vital Signs Temp 99.0 F 03/19/17 11:55 Pulse 89 03/19/17 11:55 Resp 20 03/19/17 11:55 BP 129/70 03/19/17 11:55 Pulse Ox 93 L 03/19/17 11:55 Weight - Most Recent: 160 lb Med Orders - Current: Current Medications Discontinued Medications Acetaminophen (Tylenol) 650 mg PO NOW ONE Stop: 03/16/17 18:54 Last Admin: 03/16/17 19:16 Dose: 650 mg Acetaminophen (Tylenol) 650 mg PO Q6H PRN PRN Reason: Headache/Pain Last Admin: 03/19/17 01:21 Dose: 650 mg Albuterol/Ipratropium (Duoneb 3.0-0.5 Mg/3 Ml) 3 ml NEB ONETIME ONE Stop: 03/16/17 16:11 Last Admin: 03/16/17 16:31 Dose: 3 ml Amlodipine Besylate (Norvasc) 5 mg PO DAILY [facility] Last Admin: 03/19/17 09:22 Dose: 5 mg Atorvastatin Calcium (Lipitor) 40 mg PO BEDTIME [facility] Last Admin: 03/18/17 20:36 Dose: 40 mg Dexamethasone (Dexamethasone) 10 mg IVPUSH ONETIME ONE Stop: 03/16/17 16:12 Last Admin: 03/16/17 16:31 Dose: 10 mg Enoxaparin Sodium (Lovenox) 40 mg SUBCUT DAILY [facility] Last Admin: 03/19/17 09:22 Dose: 40 mg Furosemide (Lasix) 40 mg PO DAILY [facility] Last Admin: 03/19/17 09:22 Dose: 40 mg Guaifenesin (Robitussin) 200 mg PO Q6H PRN PRN Reason: Cough Last Admin: 03/18/17 21:14 Dose: 200 mg HCTZ/Losartan Potassium (Hyzaar 50-12.5 Mg) 2 tab PO DAILY [facility] Last Admin: 03/19/17 09:21 Dose: 2 tab Levofloxacin/Dextrose 750 mg/ (Premix) 150 mls @ 100 mls/hr IV ONETIME ONE Stop: 03/16/17 20:29 Last Admin: 03/16/17 19:17 Dose: 100 mls/hr Sodium Chloride (Normal Saline) 1,000 mls @ 999 mls/hr IV STAT ONE Stop: 03/16/17 20:00 Last Admin: 03/16/17 19:16 Dose: 999 mls/hr Levofloxacin/Dextrose 750 mg/ (Premix) 150 mls @ 100 mls/hr IV ONETIME ONE Stop: 03/17/17 21:29 Last Admin: 03/17/17 20:14 Dose: 100 mls/hr Levofloxacin/Dextrose 750 mg/ (Premix) 150 mls @ 100 mls/hr IV Q24H [facility] Last Admin: 03/18/17 20:36 Dose: 100 mls/hr Insulin Aspart (Novolog) 0 unit SUBCUT QIDACANDBED [facility] PRN Reason: Protocol Last Admin: 03/19/17 12:45 Dose: Not Given Insulin Aspart (Novolog) 6 unit SUBCUT TID [facility] Last Admin: 03/17/17 13:37 Dose: 6 units Insulin Aspart (Novolog) 10 unit SUBCUT TID [facility] Insulin Aspart (Novolog) 10 unit SUBCUT TIDMEALS [facility] Last Admin: 03/18/17 12:21 Dose: 10 units Insulin Aspart (Novolog) 6 unit SUBCUT TIDMEALS [facility] Last Admin: 03/19/17 12:50 Dose: 6 units Insulin Detemir (Levemir) 27 unit SUBCUT BEDTIME [facility] Last Admin: 03/17/17 22:46 Dose: 27 unit Insulin Detemir (Levemir) 40 unit SUBCUT BEDTIME [facility] Last Admin: 03/18/17 21:32 Dose: Not Given Insulin Detemir (Levemir) 32 unit SUBCUT BEDTIME [facility] Last Admin: 03/18/17 21:13 Dose: 10 units Insulin Human Regular (Novolin R) 10 unit IVPUSH ONETIME ONE PRN Reason: Protocol Stop: 03/16/17 17:09 Last Admin: 03/16/17 17:59 Dose: 10 units Lisinopril (Prinivil) 10 mg PO DAILY [facility] Lisinopril (Prinivil) 10 mg PO DAILY [facility] Last Admin: 03/19/17 09:22 Dose: 10 mg Metformin HCl (Glucophage) 1,000 mg PO BIDMEALS [facility] Last Admin: 03/18/17 08:25 Dose: 1,000 mg Metoprolol Succinate (Toprol Xl) 25 mg PO BEDTIME [facility] Last Admin: 03/18/17 20:36 Dose: 25 mg Mirtazapine (Remeron) 15 mg PO BEDTIME [facility] Last Admin: 03/18/17 22:17 Dose: 15 mg Sodium Chloride (Saline Flush) 10 ml FLUSH ASDIRECTED PRN PRN Reason: Keep Vein Open Sodium Chloride (Saline Flush) 2.5 ml FLUSH ASDIRECTED PRN PRN Reason: Keep Vein Open Sodium Chloride (Saline Flush) 10 ml FLUSH ASDIRECTED PRN PRN Reason: Keep Vein Open Sodium Chloride (Saline Flush) 2.5 ml FLUSH ASDIRECTED PRN PRN Reason: Keep Vein Open - Exam General: Alert, Oriented HEENT: Pupils Equal, Pupils Reactive, EOMI Neck: Supple, Trachea Midline Lungs: Crackles, Rhonchi Cardiovascular: Regular Rate, Regular Rhythm, Gallops - Problem List & Annotations (1) Type 2 diabetes mellitus SNOMED Code(s): 35330837 Code(s): E11.9 - TYPE 2 DIABETES MELLITUS WITHOUT COMPLICATIONS Status: Acute Qualifiers: Diabetes mellitus complication status: without complication (2) CAP (community acquired pneumonia) SNOMED Code(s): 098893112 Code(s): J18.9 - PNEUMONIA, UNSPECIFIED ORGANISM Status: Acute (3) HTN (hypertension) SNOMED Code(s): 19197670 Code(s): I10 - ESSENTIAL (PRIMARY) HYPERTENSION Status: Chronic Qualifiers: Hypertension type: essential hypertension Qualified Code(s): I10 - Essential (primary) hypertension - Problem List Review Problem List Initiated/Reviewed/Updated: Yes - Assessment Assessment:: CAP DMu/c HTN u/c CHF decreased appetite plan: continue Levaquin IV , f/up ECHO , BC negative , continue lasix 40 mg po daily , BP control , heparin sq, lipid profile
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
== END 2017-03-19 15:35 | disposition home or self-care (01) | DRG 194 ==
LOC: MW.ED 15:37 → MW.MS 19:03
PROVIDERS: ADMIT Internal Medicine; ATTEND Internal Medicine
DX: J18.9 Pneumonia, unspecified organism (principal); I50.20 Unspecified systolic (congestive) heart failure; E10.9 Type 1 diabetes mellitus without complications; I10 Essential (primary) hypertension; E78.5 Hyperlipidemia, unspecified; Z79.4 Long term (current) use of insulin; Z79.899 Other long term (current) drug therapy
CPT/HCPCS: 36415; 71020; 71020-26; 80048; 80053; 80061; 81001; 81025; 82962; 83036; 84484; 85025; 87040; 87070; 87205; 93005; 93306; 96365; 96375; 99284; 99285-25; A9270-GY; J1100; J1650; J1815-GY ×2; J1956; J7040

== ENCOUNTER 2017-07-27 15:55 | Observation (INO) | payer SELFPAY ==
[2017-07-27] MEDS ORDERED: Sodium Chloride 0.9% 2.5 ML Syringe FLUSH PRN (16:25)
[2017-07-27] MEDS ORDERED: Ondansetron 4 MG/2 ML SDV IVPUSH PRN (16:25)
[2017-07-27] MEDS ORDERED: Acetaminophen 325 MG Tab PO PRN (16:25)
[2017-07-27] MEDS ORDERED: Furosemide 40 MG/4 ML VIAL IVPUSH ONE (16:51)
--- NOTE | 2017-07-27 17:02 | PCM.HP ---
H&P History of Present Illness - General Date of Service: 07/27/17 Admit Problem/Dx: Admission Diagnosis/Problem Admission Diagnosis/Problem Congestive heart failure Source of Information: Patient, Family (Daughter at bedside.) History Limitations: Reports: No Limitations - History of Present Illness Initial Comments - Free Text/Narative: This 46 year old female with pmh of systolic HF, IDDM, dyslipidemia, and HTN presented to her PCP today with concerns of peripheral edema, dyspnea and cough with white phlegm. She was recommended for direct admission. Her and her daughter report this worsening peripheral edema which started about 1 week ago and then a cough started with shortness of breath with exertion. She denies orthopnea. She denies fever, chills or URI symptoms. The phlegm she is coughing up is white and frothy in nature. She reports just not feeling well and drinking a lot of tea with honey and sugar. She reports being complaint with all her medications including insulin and Lasix. Denies eating a lot of salty or high sodium foods. At the clinic labwork was obtained which revealed elevated BNP, 824 and hyperglycemia, 370. BUN 21, Cr 0.8, Na 135 and K+ 3.8. CXR revealed lingular consolidation, peribronchial cuffing and fullness maybe secondary to infectious process but can not exclude pulmonary edema, cardiomegaly. She will be admitted observation for acuteon chronic systolic CHF exacerbation. 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 KENNEL SUPERVISOR - Related Data Allergies/Adverse Reactions: Allergies Allergy/AdvReac Type Severity Reaction Status Date / Time No Known Allergies Allergy Verified 07/27/17 16:21 Home Medications: Home Meds Insulin Aspart [NovoLOG] 6 units SQ TID 05/23/15 [History] metFORMIN [Glucophage] 1,000 mg PO BIDMEALS 05/23/15 [History] Furosemide 60 mg PO DAILY 03/16/17 [History] Aspirin [Ecotrin] 81 mg PO DAILY #30 03/19/17 [Rx] Insulin Detemir [Levemir] 12 unit SUBCUT BEDTIME 07/27/17 [History] Metoprolol Succinate [Toprol XL] 25 mg PO QAM 07/27/17 [History] Past Medical History - Past Health History Medical/Surgical History: Denies Medical/Surgical History HEENT History: Reports: Impaired Vision Cardiovascular History: Reports: Heart Failure, High Cholesterol, Hypertension. Denies: Afib, Blood Clots/VTE/DVT, VT Respiratory History: Reports: None. Denies: COPD Gastrointestinal History: Reports: None Genitourinary History: Reports: Other (See Below) Other Genitourinary History: UTI TELLER COORDINATOR History: Reports: None Musculoskeletal History: Reports: None Neurological History: Reports: None. Denies: CVA, TIA Psychiatric History: Reports: None Endocrine/Metabolic History: Reports: Diabetes, Type II. Denies: Hypothyroidism Hematologic History: Reports: None Immunologic History: Reports: None Oncologic (Cancer) History: Reports: None Dermatologic History: Reports: None - Infectious Disease History Infectious Disease History: Reports: None - Past Surgical History Head Surgeries/Procedures: Reports: None Cardiovascular Surgical History: Reports: None GI Surgical History: Reports: Appendectomy Female Surgical History: Reports: None Endocrine Surgical History: Reports: None Musculoskeletal Surgical History: Reports: None Social & Family History - Family History Family Medical History: Noncontributory - Tobacco Use Smoking Status *Q: Never Smoker Second Hand Smoke Exposure: No - Caffeine Use Caffeine Use: Reports: Tea - Alcohol Use Alcohol Use History: No - Recreational Drug Use Recreational Drug Use: No - Living Situation & Occupation Living situation: Reports: with Family H&P Review of Systems - Review of Systems: Review Of Systems: See Below General: Reports: Malaise, Fatigue, Decreased Appetite. Denies: Fever, Chills, Weakness HEENT: Reports: No Symptoms. Denies: Headaches, Sinus Congestion, Sore Throat, Visual Changes Pulmonary: Reports: Shortness of Breath, Cough, Sputum (white frothy) Cardiovascular: Reports: Edema (legs extending to hips). Denies: Chest Pain, Palpitations, Orthopnea, Syncope Gastrointestinal: Reports: No Symptoms. Denies: Abdominal Pain, Black Stool, Bloody Stool, Nausea, Vomiting Genitourinary: Reports: No Symptoms. Denies: Dysuria, Frequency, Burning, Pain Musculoskeletal: Reports: No Symptoms Skin: Reports: No Symptoms Psychiatric: Reports: No Symptoms Neurological: Reports: No Symptoms Hematologic/Lymphatic: Reports: No Symptoms Immunologic: Reports: No Symptoms Exam - Exam Exam: See Below - Vital Signs Vital Signs: Last Vital Signs Temp 97.9 F 07/27/17 16:10 Pulse 89 07/27/17 16:10 Resp 18 04/03/18 16:10 BP 176/107 H 04/03/18 16:12 Pulse Ox 95 07/27/17 16:10 Weight: 76.34 kg - Exam Quality Assessment: DVT Prophylaxis. No: Supplemental Oxygen General: Alert, Oriented, Cooperative HEENT: Conjunctiva Clear, Mucosa Moist & Omer, Posterior Pharynx Clear, Pupils Reactive Neck: Supple, Trachea Midline, Full Range of Motion. No: JVD Lungs: Crackles (R base, fine crackles) Cardiovascular: Regular Rate, Regular Rhythm, Normal S1, Normal S2. No: Irregular Rhythm, Systolic Murmur Back Exam: Normal Inspection, Full Range of Motion, NT Extremities: Normal Range of Motion, Non-Tender, Pedal Edema (+3 pitting edema to bilateral lower legs very taut skin, no weeping. Extending up to bilateral hips, which are +1-2 pitting edema) Skin: Warm, Dry Neuro Extensive - Mental Status: Alert, Oriented x3, Normal Mood/Affect, Normal Cognition Neuro Extensive - Motor, Sensory, Reflexes: CN II-XII Intact, Normal Gait, Normal Reflexes Psychiatric: Alert, Normal Affect, Normal Mood - Patient Data Lab Results Last 24 hrs: Laboratory Results - last 24 hr 07/27/17 Range/Units 16:45 POC Glucose 361 H (60-110) mg/dL EKG INTERPRETATION EKG Date: 07/27/17 Rhythm: NSR Rate (Beats/Min): 94 P-Wave: Present QRS: Normal ST-T: Normal QT: Normal EKG Interpretation Comments: obtained at [facility] *Q Meaningful Use (ADM) - VTE Risk Assess *Q Each Risk Factor Represents 1 Point: Age 41 - 59 years, Swollen Legs, Current, Obesity ( BMI > 25 kg/m2), Congestive heart failure (CHF) Total Score 1 Point Risk Factors: 4 Each Risk Factor Represents 2 Points: None Total Score 2 Point Risk Factors: 0 Each Risk Factor Represents 3 Points: None Total Score 3 Point Risk Factors: 0 Each Risk Factor Represents 5 Points: None Total Score 5 Point Risk Factors: 0 Venous Thromboembolism Risk Factor Score *Q: 4 - Problem List (1) CHF (congestive heart failure) SNOMED Code(s): 76052462 ICD Code: I50.9 - HEART FAILURE, UNSPECIFIED Status: Acute Current Visit : No Qualifiers: Heart failure type: systolic Heart failure chronicity: acute on chronic Qualified Code(s): I50.23 - Acute on chronic systolic (congestive) heart failure (2) HTN (hypertension) SNOMED Code(s): 83204619 ICD Code: I10 - ESSENTIAL (PRIMARY) HYPERTENSION Status: Chronic Current Visit: No Qualifiers: Hypertension type: essential hypertension Qualified Code(s): I10 - Essential (primary) hypertension (3) Type 2 diabetes mellitus SNOMED Code(s): 78912750 ICD Code: E11.9 - TYPE 2 DIABETES MELLITUS WITHOUT COMPLICATIONS Status: Chronic Current Visit: Yes Qualifiers: Diabetes mellitus parts counterman insulin use: with chcf use Diabetes mellitus complication status: with hyperglycemia Qualified Code(s): E11.65 - Type 2 diabetes mellitus with hyperglycemia; Z79.4 - ad terminal makeup operator (current) use of insulin Problem List Initiated/Reviewed/Updated: Yes Orders Last 24hrs: Active Orders 24 hr Category Date Time Status Patient Status [ADT] Routine ADT 07/27/17 16:25 Ordered Blood Glucose Check, Bedside [RC] TIDAC Care 07/27/17 16:28 Ordered Cardiac Monitoring [RC] . DIRECTED Care 07/27/17 16:51 Inactive Elevate Extremity [RC] BID Care 07/27/17 16:54 Ordered Height and Weight [RC] DAILY Care 07/27/17 16:25 Ordered Intake and Output Strict [RC] ASDIRECTED Care 07/27/17 16:28 Ordered Oxygen Therapy [RC] PRN Care 07/27/17 16:25 Ordered Telemetry Monitoring [Cardiac Monitoring] [RC] . Care 07/27/17 16:55 Ordered DIRECTED Up ad Ariana [RC] ASDIRECTED Care 07/27/17 16:25 Ordered VTE/DVT Education [RC] PER UNIT ROUTINE Care 07/27/17 16:25 Ordered Vital Signs [RC] Q4H Care 07/27/17 16:25 Ordered 2 Gram Sodium Diet [DIET] Diet 07/27/17 Dinner Ordered Echo 2D wo Cont [US] Urgent Exams 07/27/17 16:25 Ordered BASIC METABOLIC PANEL,BMP [CHEM] AM Lab 07/28/17 05:11 Ordered CBC WITH AUTO DIFF [HEME] AM Lab 07/28/17 05:11 Ordered GLYCOSYLATED HEMOGLOBIN,HGBA1C [CHEM] AM Lab 07/28/17 05:11 Ordered Acetaminophen [Tylenol] Med 07/27/17 16:25 Ordered 650 mg PO Q4H PRN Aspirin [Halfprin] Med 07/28/17 09:00 Ordered 81 mg PO DAILY Furosemide [Lasix] Med 07/27/17 16:51 Once 60 mg IVPUSH NOW ONE Heparin Sodium Med 07/27/17 21:00 Ordered 5,000 units SUBCUT Q12HR Insulin Aspart [NovoLOG] Med 07/27/17 17:00 Ordered 6 unit SUBCUT TIDAC Insulin Aspart [NovoLOG] Med 07/27/17 17:00 Ordered See Protocol SUBCUT TIDAC Insulin Detemir [Levemir] Med 07/27/17 21:00 Ordered 12 unit SUBCUT BEDTIME Metoprolol Succinate [Toprol XL] Med 07/28/17 09:00 Ordered 25 mg PO QAM Ondansetron [Zofran] Med 07/27/17 16:25 Ordered 4 mg IVPUSH Q4H PRN Sodium Chloride 0.9% [Saline Flush] Med 07/27/17 16:25 Ordered 2.5 ml FLUSH ASDIRECTED PRN Saline Lock Insert [OM.PC] Routine Oth 07/27/17 16:25 Ordered Resuscitation Status Routine Resus Stat 07/27/17 16:25 Ordered Medication Orders Acetaminophen (Tylenol) 650 mg PO Q4H PRN PRN Reason: Pain (mild 1-3) Aspirin (Halfprin) 81 mg PO DAILY MAY Furosemide (Lasix) 60 mg IVPUSH NOW ONE Stop: 07/27/17 16:52 Heparin Sodium (Porcine) (Heparin Sodium) 5,000 units SUBCUT Q12HR MAY Insulin Aspart (Novolog) 6 unit SUBCUT TIDAC MAY Insulin Aspart (Novolog) 0 unit SUBCUT TIDAC MAY; Protocol Insulin Detemir (Levemir) 12 unit SUBCUT BEDTIME MAY Metoprolol Succinate (Toprol Xl) 25 mg PO QAM MAY Ondansetron HCl (Zofran) 4 mg IVPUSH Q4H PRN PRN Reason: Nausea Sodium Chloride (Saline Flush) 2.5 ml FLUSH ASDIRECTED PRN PRN Reason: Keep Vein Open Assessment/Plan Comment:: This 46 year old female admitted with acute on chronic CHF 1. Acute on chronic systolic CHF: Worsening peripheral edema and dyspnea, no hypoxia noted. Last ECHO 02/2017, EF 40% with global and moderately decreased LV systolic fucntion. 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 Reports not taking ARB any longer. On Metoprolol, ASA and Lasix daily at home. Will give Lasix 60 mg IV now and monitor strict I/O and daily weights. Low sodium diet with 2 L FR. Will obtain ECHO. 2. DM type 2: Insulin dependent, uncontrolled. BS today 370. Last A1c 13.9, will obtain one in am. Continue Levemir 12 units at HS, may need to increase and Novolog 6 units with meals, plus SSI. Consult DM educator for teaching and assistance. 3. HTN: Uncontrolled, 170/100. Give Lasix and monitor. Monitor on telemetry. No chest pain. VTE prophylaxis: Heparin. Dispo: 1-2 days pending improvement
[2017-07-27] MEDS: Insulin Aspart 100 Units/ML 3 ML Pen SUBCUT SCH ×2 (17:08→17:09)
[2017-07-27] MEDS ORDERED: Insulin Detemir 100 Units/ML 3 ML Pen SUBCUT SCH (21:00)
[2017-07-27] MEDS: Heparin Sodium 5,000 Units/ML Vial SUBCUT SCH (21:32)
[2017-07-28 05:52] LABS: CHLORIDE,CL 105 mmol/L (98-107); SODIUM,NA 140 mmol/L (136-145)
[2017-07-28] MEDS: Insulin Aspart 100 Units/ML 3 ML Pen SUBCUT SCH ×2 (07:35→07:36)
[2017-07-28] MEDS: Heparin Sodium 5,000 Units/ML Vial SUBCUT SCH (08:12)
[2017-07-28] MEDS ORDERED: Furosemide 40 MG/4 ML VIAL IVPUSH ONE (08:17)
[2017-07-28] MEDS ORDERED: Potassium Chloride 20 MEQ Tab.ER PO SCH (08:30)
[2017-07-28] MEDS ORDERED: Aspirin 81 MG Tab.EC PO SCH (09:00)
[2017-07-28] MEDS ORDERED: Metoprolol Succinate 25 MG Tab.ER PO SCH (09:00)
[2017-07-28] MEDS ORDERED: Insulin Aspart 100 Units/ML 3 ML Pen SUBCUT SCH (11:30)
[2017-07-28 11:45] VITALS: BP 149/88
[2017-07-28] MEDS ORDERED: Losartan 50 MG Tab PO SCH (12:24)
--- NOTE | 2017-07-28 12:38 | PCM.DCSUM1 ---
Discharge Summary - Hospital Course Brief History: This 46 year old female with pmh of systolic HF, IDDM, dyslipidemia, and HTN presented to her PCP today with concerns of peripheral edema, dyspnea and cough with white phlegm. She was recommended for direct admission. Her and her daughter report this worsening peripheral edema which started about 1 week ago and then a cough started with shortness of breath with exertion. She denies orthopnea. She denies fever, chills or URI symptoms. The phlegm she is coughing up is white and frothy in nature. She reports just not feeling well and drinking a lot of tea with honey and sugar. She reports being complaint with all her medications including insulin and Lasix. Denies eating a lot of salty or high sodium foods. At the clinic labwork was obtained which revealed elevated BNP, 824 and hyperglycemia, 370. BUN 21, Cr 0.8, Na 135 and K + 3.8. CXR revealed lingular consolidation, peribronchial cuffing and fullness maybe secondary to infectious process but can not exclude pulmonary edema, cardiomegaly. She will be admitted observation for acute on chronic systolic CHF exacerbation. PCP, Iwona Curran MBA INTERN - Discharge Data Discharge Date: 07/28/17 Discharge Disposition: Home, Self-Care 01 Condition: Good - Discharge Diagnosis/Problem(s) (1) CHF (congestive heart failure) SNOMED Code(s): 72417730 ICD Code: I50.9 - HEART FAILURE, UNSPECIFIED Status: Acute Qualifiers: Heart failure type: systolic Heart failure chronicity: acute on chronic Qualified Code(s): I50.23 - Acute on chronic systolic (congestive) heart failure (2) HTN (hypertension) SNOMED Code(s): 20587724 ICD Code: I10 - ESSENTIAL (PRIMARY) HYPERTENSION Status: Chronic Qualifiers: Hypertension type: essential hypertension Qualified Code(s): I10 - Essential (primary) hypertension (3) Type 2 diabetes mellitus SNOMED Code(s): 42386103 ICD Code: E11.9 - TYPE 2 DIABETES MELLITUS WITHOUT COMPLICATIONS Status: Chronic Qualifiers: Diabetes mellitus salvage determiner insulin use: with salvage determiner use Diabetes mellitus complication status: with hyperglycemia Qualified Code(s): E11.65 - Type 2 diabetes mellitus with hyperglycemia; Z79.4 - buttermaker (current) use of insulin (4) Non-compliance SNOMED Code(s): 0922131 ICD Code: Z91.19 - PATIENT'S NONCOMPLIANCE W OTH MEDICAL TREATMENT AND REGIMEN Status: Acute - Patient Summary/Data Consults: Consultations 07/28/17 08:18 Consult to Pockets And Pieces Necktie Operator [Consult to Diabetic Nurse Specialist] [CONS] Routine - Patient Instructions Diet: Heart Healthy Diet, Low Sodium, Diabetic Diet Activity: As Tolerated, No Strenuous Activities Showering/Bathing: May Shower Notify Provider of: Fever, Increased Pain, Swelling and Redness, Drainage, Nausea and/or Vomiting Other/Special Instructions: Monitor weight daily and if weight increases by 3-5 lbs in 2-3 days notified primary care provider. Compression stockings to bilateral legs on during awake hours and off when sleeping. Monitor blood pressures at home. - Discharge Plan Prescriptions/Med Rec: Losartan [Cozaar] 100 mg PO DAILY #30 tablet Home Medications: Home Meds Insulin Aspart [NovoLOG] 6 units SQ TID 05/23/15 [History] metFORMIN [Glucophage] 1,000 mg PO BIDMEALS 05/23/15 [History] Aspirin [Ecotrin] 81 mg PO DAILY #30 03/19/17 [Rx] Insulin Detemir [Levemir] 12 unit SUBCUT BEDTIME 07/27/17 [History] Metoprolol Succinate [Toprol XL] 25 mg PO QAM 07/27/17 [History] Furosemide 60 mg PO DAILY #10 07/28/17 [Rx] Losartan [Cozaar] 100 mg PO DAILY #30 tablet 07/28/17 [Rx] Patient Handouts: Hydrochlorothiazide, HCTZ; Losartan tablets, Losartan tablets , Type 2 Diabetes Mellitus, Self Care, Adult, [id number], Heart Failure, Easy- to-Read Referrals: Zaria Henriquez MD [Physician] - 08/04/17 11:00 am Iwona Curran NP [Ordering Only Provider] - 08/02/17 9:45 am - Discharge Summary/Plan Comment DC Time >30 min.: No Discharge Summary/Plan Comment: Discharge Diagnoses: Acute on chronic systolic CHF exacerbation- mild Uncontrolled HTN Uncontrolled DM type 2, insulin dependent. Tiffanie was admitted for mild acute on chronic systolic CHF exacerbation, EF was noted prior to be 40%. ECHO pending at discharge. She was treated with lasix 60 mg IV x 2 doses, with good diuresis and improvement in cough and dyspnea. Legs continue to have pitting edema, but improved slightly overnight with elevation and compression stockings. She is eager for discharge today. She reports she is NOT taking Losartan anymore, and only on Metoprolol for BP. BP reanged here before Lasix given 170/100s. I will restart Losartan 100 mg daily now. She is to increase Lasix 60 mg to BID for 3 more days then back to her 60 mg daily. She is to monitor salt intake and to not add salt to any of her food. She was educated to weight her self daily and journal the weights along with BPs. She was also educated on Blood sugar control, which she and her friend report she drinks a lot of surgary juice concentrates, which she was highly encouraged to stop. BS remain uncontrolled with A1c of 13.1, but she is unwilling to change insulin dosing currently. I will arrange follow up with DM educator at [facility] to follow more closely and educate on diet as well as improved control. With heart failure she has not been seen by cadiologist, per her report. I will set her up to see Dr Henriquez for evaluation and follow up with ECHO. She again is requesting discharge home. She is to continue all current medications including increasing Lasix to BID for 3 days and starting Losartan 100 mg back. Complaince is highly encouraged with medication regimen. She is to return to ED or clinic if concerns should arise. - General Info Date of Service: 07/28/17 Admission Dx/Problem (Free Text: Admission Diagnosis/Problem Admission Diagnosis/Problem Congestive heart failure Subjective Update: Feeling much improved today, no cough or dypsnea. No chest pain or headache. Asking to go home. No abdominal pain and legs feel a little less swollen. Functional Status: Reports: Pain Controlled, Tolerating Diet, Ambulating, Urinating - Review of Systems HEENT: Reports: No Symptoms. Denies: Glasses, Headaches, Sore Throat, Visual Changes Pulmonary: Reports: No Symptoms. Denies: Shortness of Breath, Pleuritic Chest Pain, Cough, Sputum Cardiovascular: Reports: Edema. Denies: Chest Pain Gastrointestinal: Reports: No Symptoms. Denies: Abdominal Pain, Nausea, Vomiting Musculoskeletal: Reports: No Symptoms Skin: Reports: No Symptoms Neurological: Reports: No Symptoms Psychiatric: Reports: No Symptoms - Patient Data Vitals - Most Recent: Last Vital Signs Temp 98 F 07/28/17 11:45 Pulse 85 07/28/17 11:45 Resp 16 07/28/17 11:45 BP 149/88 H 07/28/17 11:45 Pulse Ox 95 07/28/17 11:45 Weight - Most Recent: 74.4 kg I&O - Last 24 hours: Intake & Output 07/27/17 07/28/17 07/28/17 22:59 06:59 14:59 Intake Total 500 Balance 500 Lab Results - Last 24 hrs: Laboratory Results - last 24 hr 07/27/17 07/27/17 07/28/17 Range/Units 16:45 21:12 04:53 WBC 3.89 L (4.0-11.0) K/uL RBC 4.10 L (4.30-5.90) M/uL Hgb 11.3 L (12.0-16.0) g/dL Hct 35.3 L (36.0-46.0) % MCV 86.1 (80.0-98.0) fL MCH 27.6 (27.0-32.0) pg MCHC 32.0 (31.0-37.0) g/dL RDW Std Deviation 44.3 (28.0-62.0) fl RDW Coeff of Matt 14 (11.0-15.0) % Plt Count 254 (150-400) K/uL MPV 10.20 (7.40-12.00) fL Neut % (Auto) 57.8 (48.0-80.0) % Lymph % (Auto) 31.9 (16.0-40.0) % Caroline % (Auto) 8.5 (0.0-15.0) % Eos % (Auto) 1.5 (0.0-7.0) % Baso % (Auto) 0.3 (0.0-1.5) % Neut # (Auto) 2.3 (1.4-5.7) K/uL Lymph # (Auto) 1.2 (0.6-2.4) K/uL Caroline # (Auto) 0.3 (0.0-0.8) K/uL Eos # (Auto) 0.1 (0.0-0.7) K/uL Baso # (Auto) 0.0 (0.0-0.1) K/uL Nucleated RBC % 0.0 /100WBC Nucleated RBCs # 0 K/uL Sodium (136-145) mmol/L Potassium (3.5-5.1) mmol/L Chloride (98-107) mmol/L Carbon Dioxide (21.0-32.0) mmol/L BUN (7.0-18.0) mg/dL Creatinine (0.6-1.0) mg/dL Est Cr Clr Drug Dosing mL/min Estimated GFR (MDRD) ml/min Glucose (74-106) mg/dL POC Glucose 361 H 113 H (60-110) mg/dL Hemoglobin A1c (4.5-6.2) % Calcium (8.5-10.1) mg/dL Magnesium (1.5-2.0) mg/dL 07/28/17 07/28/17 07/28/17 Range/Units 04:53 04:53 04:53 WBC (4.0-11.0) K/uL RBC (4.30-5.90) M/uL Hgb (12.0-16.0) g/dL Hct (36.0-46.0) % MCV (80.0-98.0) fL MCH (27.0-32.0) pg MCHC (31.0-37.0) g/dL RDW Std Deviation (28.0-62.0) fl RDW Coeff of Matt (11.0-15.0) % Plt Count (150-400) K/uL MPV (7.40-12.00) fL Neut % (Auto) (48.0-80.0) % Lymph % (Auto) (16.0-40.0) % Caroline % (Auto) (0.0-15.0) % Eos % (Auto) (0.0-7.0) % Baso % (Auto) (0.0-1.5) % Neut # (Auto) (1.4-5.7) K/uL Lymph # (Auto) (0.6-2.4) K/uL Caroline # (Auto) (0.0-0.8) K/uL Eos # (Auto) (0.0-0.7) K/uL Baso # (Auto) (0.0-0.1) K/uL Nucleated RBC % /100WBC Nucleated RBCs # K/uL Sodium 140 (136-145) mmol/L Potassium 3.6 (3.5-5.1) mmol/L Chloride 105 (98-107) mmol/L Carbon Dioxide 29.4 (21.0-32.0) mmol/L BUN 19 H (7.0-18.0) mg/dL Creatinine 0.9 (0.6-1.0) mg/dL Est Cr Clr Drug Dosing 73.90 mL/min Estimated GFR (MDRD) > 60.0 ml/min Glucose 252 H (74-106) mg/dL POC Glucose (60-110) mg/dL Hemoglobin A1c 13.1 H (4.5-6.2) % Calcium 8.6 (8.5-10.1) mg/dL Magnesium 1.7 (1.5-2.0) mg/dL 07/28/17 07/28/17 07/28/17 Range/Units 06:33 09:46 11:27 WBC (4.0-11.0) K/uL RBC (4.30-5.90) M/uL Hgb (12.0-16.0) g/dL Hct (36.0-46.0) % MCV (80.0-98.0) fL MCH (27.0-32.0) pg MCHC (31.0-37.0) g/dL RDW Std Deviation (28.0-62.0) fl RDW Coeff of Matt (11.0-15.0) % Plt Count (150-400) K/uL MPV (7.40-12.00) fL Neut % (Auto) (48.0-80.0) % Lymph % (Auto) (16.0-40.0) % Caroline % (Auto) (0.0-15.0) % Eos % (Auto) (0.0-7.0) % Baso % (Auto) (0.0-1.5) % Neut # (Auto) (1.4-5.7) K/uL Lymph # (Auto) (0.6-2.4) K/uL Caroline # (Auto) (0.0-0.8) K/uL Eos # (Auto) (0.0-0.7) K/uL Baso # (Auto) (0.0-0.1) K/uL Nucleated RBC % /100WBC Nucleated RBCs # K/uL Sodium (136-145) mmol/L Potassium (3.5-5.1) mmol/L Chloride (98-107) mmol/L Carbon Dioxide (21.0-32.0) mmol/L BUN (7.0-18.0) mg/dL Creatinine (0.6-1.0) mg/dL Est Cr Clr Drug Dosing mL/min Estimated GFR (MDRD) ml/min Glucose (74-106) mg/dL POC Glucose 226 H 74 242 H (60-110) mg/dL Hemoglobin A1c (4.5-6.2) % Calcium (8.5-10.1) mg/dL Magnesium (1.5-2.0) mg/dL Med Orders - Current: Current Medications Acetaminophen (Tylenol) 650 mg PO Q4H PRN PRN Reason: Pain (mild 1-3) Aspirin (Halfprin) 81 mg PO DAILY [facility] Last Admin: 07/28/17 08:12 Dose: 81 mg Heparin Sodium (Porcine) (Heparin Sodium) 5,000 units SUBCUT Q12HR [facility] Last Admin: 07/28/17 08:12 Dose: 5,000 units Insulin Aspart (Novolog) 0 unit SUBCUT TIDAC [facility]; Protocol Last Admin: 07/28/17 12:29 Dose: 4 unit Insulin Detemir (Levemir) 12 unit SUBCUT BEDTIME [facility] Last Admin: 07/27/17 21:30 Dose: 12 unit Losartan Potassium (Cozaar) 100 mg PO DAILY [facility] Metoprolol Succinate (Toprol Xl) 25 mg PO QAM [facility] Last Admin: 07/28/17 08:13 Dose: 25 mg Ondansetron HCl (Zofran) 4 mg IVPUSH Q4H PRN PRN Reason: Nausea Potassium Chloride (Klor-Con M20) 40 meq PO BID@0830,1500 [facility] Stop: 07/28/17 15:01 Last Admin: 07/28/17 08:39 Dose: 40 meq Sodium Chloride (Saline Flush) 2.5 ml FLUSH ASDIRECTED PRN PRN Reason: Keep Vein Open Discontinued Medications Furosemide (Lasix) 60 mg IVPUSH NOW ONE Stop: 07/27/17 16:52 Last Admin: 07/27/17 17:54 Dose: 60 mg Furosemide (Lasix) 60 mg IVPUSH NOW ONE Stop: 07/28/17 08:18 Last Admin: 07/28/17 08:39 Dose: 60 mg Insulin Aspart (Novolog) 6 unit SUBCUT TIDAC [facility] Last Admin: 07/28/17 07:35 Dose: 6 units Insulin Aspart (Novolog) 0 unit SUBCUT TIDAC [facility]; Protocol Last Admin: 07/28/17 07:36 Dose: 2 units - Exam General: Reports: Alert, Oriented, Cooperative, No Acute Distress Neck: Reports: Supple Lungs: Reports: Clear to Auscultation, Normal Respiratory Effort Cardiovascular: Reports: Regular Rate, Regular Rhythm GI/Abdominal Exam: Normal Bowel Sounds, Soft, Non-Tender, No Organomegaly, No Distention, No Abnormal Bruit, No Mass, Pelvis Stable Extremities: Pedal Edema (+3 pitting edema to legs, improved, with some wrinkling from reduction of edema. ) Skin: Reports: Warm, Dry, Intact Psy/Mental Status: Reports: Alert, Normal Affect, Normal Mood
--- NOTE | 2017-07-30 15:12 | ECHO ---
The echocardiogram report can be seen in this patient's EMR (electronic medical records) in the Reports section. The echocardiogram has also been scanned into PACS and can be seen there. RACHEL
== END 2017-07-28 13:30 | disposition home or self-care (01) ==
LOC: MW.MS 15:55
PROVIDERS: ADMIT Internal Medicine; ATTEND Internal Medicine
DX: I50.23 Acute on chronic systolic (congestive) heart failure (principal); I11.0 Hypertensive heart disease with heart failure; E11.65 Type 2 diabetes mellitus with hyperglycemia; Z79.4 Long term (current) use of insulin; Z91.19 Patient's noncompliance with other medical treatment and regimen
CPT/HCPCS: 36415; 80048; 82962; 83036; 83735; 85025; 93306; 96372; 96374; 96376; A9270; G0378; G0379; J1644; J1815; J1940